=== PATIENT | male | born 1990 | race Two or more races ===

== ENCOUNTER 2023-02-17 02:30 | Emergency (ER) | payer MEDICAID ==
[~2023-02-17] VITALS: Ht 165.1 cm; Wt 60.0 kg
[2023-02-17 03:05] VITALS: BP 145/101
== END 2023-02-17 12:16 | disposition home or self-care (01) ==
LOC: ER 02:30
DX: K13.0 Diseases of lips (principal)
CPT/HCPCS: 99281